=== PATIENT | male | born 1960 | race Two or more races ===

== ENCOUNTER 2024-06-15 08:23 | Outpatient (CLI) | payer OTHER | END 2024-06-15 08:29 | disposition home or self-care (01) | LOC: SONOGRAMA 08:23 | DX: M77.11 Lateral epicondylitis, right elbow (principal) ==

== ENCOUNTER 2024-07-09 08:46 | Outpatient (CLI) | payer OTHER | END 2024-07-09 09:23 | disposition home or self-care (01) | LOC: MRI 08:46 → SONOGRAMA 08:46 → MRI 09:23 | DX: R10.13 Epigastric pain (principal); R14.0 Abdominal distension (gaseous); R10.31 Right lower quadrant pain; K29.00 Acute gastritis without bleeding; R11.2 Nausea with vomiting, unspecified; G56.01 Carpal tunnel syndrome, right upper limb; G56.02 Carpal tunnel syndrome, left upper limb ==

== ENCOUNTER 2024-07-17 10:04 | Outpatient (CLI) | payer OTHER | END 2024-07-17 10:16 | disposition home or self-care (01) | LOC: MRI 10:04 | DX: M77.11 Lateral epicondylitis, right elbow (principal) | CPT/HCPCS: 73218 ==